=== PATIENT | male | born 1985 | race African-American/Black ===

== ENCOUNTER 2017-08-29 10:40 | Emergency (ER) | payer MEDICAID ==
[~2017-08-29] VITALS: Ht 170.2 cm; Wt 101.6 kg
[~2017-08-29 10:40] MED LIST: CLINDAMYCIN HC300 MG PO; LAC PO; SIMVASTATIN10 M1 PO
[2017-08-29 10:48] VITALS: Ht 170.2 cm; Wt 101.6 kg
[2017-08-29 16:21] VITALS: BP 138/81
== END 2017-08-29 16:21 | disposition home or self-care (01) ==
LOC: ED 10:40
DX: M21.612 Bunion of left foot (principal)
CPT/HCPCS: J1885